=== PATIENT | female | born 1975 | race Caucasian/White ===

== ENCOUNTER 2016-12-13 10:40 | Emergency (ER) | payer SELFPAY ==
[2016-12-13 10:49] VITALS: TEMP 98.2; BMI 25.7
[2016-12-13] MEDS ORDERED: Albuterol/Ipratropium Neb 3 ML NEB NEB ONE (12:01)
[2016-12-13] MEDS ORDERED: METHYLPREDNISOLONE 125 MG/2 ML VIAL IV ONE (12:01)
[2016-12-13] MEDS ORDERED: NS 1,000 ML IV ONE ×2 (12:04)
[2016-12-13] MEDS ORDERED: SODIUM CHLORIDE 0.9% 3 ML FLUSH FLUSH PRN (12:04)
--- NOTE | 2016-12-13 12:05 | EDPRACDOC ---
- General Information Chief Complaint: Chest Pain Stated Complaint: RIB CAGE PAIN Time Seen by Provider: 12/13/16 11:46 Information Source: Patient Mode Of Arrival: Car Home Medications: Home Medications Amoxicillin/Clavulanate Potas. [Augmentin] 875 mg PO BID #20 tab 12/13/16 Loratadine [Claritin] 10 mg PO DAILY 12/13/16 Omeprazole Magnesium [Prilosec Otc] 40 mg PO DAILY 12/13/16 Prednisone [Deltasone] 20 mg PO BID #12 tablet 12/13/16 Allergies/Adverse Reactions: Allergies Allergy/AdvReac Type Severity Reaction Status Date / Time No Known Allergies Allergy Verified 12/13/16 10:49 - History of Present Illness Symptoms Started: LAST NIGHT HPI: PT C/O NASAL CONGESTION COUGH CONGESTION LEFT SIDED CHEST PAIN AND SOB. PT ALSO STATES SHE HAS VOMITED 2-3 TIMES WHILE COUGHING AND C/O CHILLS AND INTERMITTENT SWEATS. Symptoms: Reports: Cough, Nasal Symptoms, Nausea, Vomiting, Other (CONGESTION) Recent Medications: Reports: None Relevant History Of: Reports: None Shortness of Breath: Mild Cough Frequency: Intermittent Cough Description: Reports: Non-productive, Congested Rhinorrhea: Reports: None Ear Symptoms: Reports: None Associated Signs and Symptoms: Reports: Cough, Nasal Symptoms, Other ( CONGESTION LEFT SIDED CHEST PAIN SHARP IN NATURE) ED Past Medical History - History Reviewed Yes Nurses notes reviewed and agree except as marked Travel Outside of [place] in the Last 3 Months?: No - Patient Medical History Cardiac History: Reports: Hypertension (OFF MEDS) GI/ History: Reports: Gastroesophageal Reflux Surgical History: Reports: Cholecystectomy - Social Medical History Smoking Status: Heavy tobacco smoker (5 or more cigarettes/day or daily pipe/ cigar) ETOH: None Substance Abuse: None Lives With: Other Lives In: Home EDM Review of Systems - Review of Systems ROS Negative Except as Marked: Yes All systems reviewed and were negative except as marked Constitutional: Chills (AND SWEATS). negative: Fever, Fatigue, Loss of Appetite , Weakness Eyes: No Symptoms Reported. negative: Redness, Blurred Vision, Double Vision, Discharge, Pain, Light Sensitive, Photophobia Ears: No Symptoms Reported. negative: Pain, Hearing Loss, Drainage, Ear Pulling Throat: No Symptoms Reported. negative: Pain, Swelling Nose: Congestion. negative: Abrasion, Bleeding, Discharge, Deformity, Ecchymosis, Injection, Laceration, Swelling, Tender Mouth: No Symptoms Reported. negative: Pain, Drooling Respiratory: Cough, Shortness of Breath. negative: Barky Cough, Brassy Cough, Hemoptysis, Wheezing Cardiovascular: Chest Pain (LEFT SIDE). negative: Cyanosis, Edema, Orthopnea, Palpitations, PND, Syncope, Skin Mottling Gastrointestinal: No Symptoms Reported. negative: Pain, Constipation, Nausea, Vomiting, Diarrhea, Melena, Formula Intolerance Genitourinary: No Symptoms Reported. negative: Dysuria, Hematuria, Frequency, Discharge, Bleeding, Testicular Pain, Neurological: No Symptoms Reported. negative: Headache, Dizziness, Seizure, Numbness, Weakness, Speech Difficulty, Gait Difficulty Musculoskeletal: Chestwall (LEFT SIDE, PAIN WORSENS WITH TAKING BREATH COUGHING NO RADIATION.). negative: Arm, Ankle, Back, Elbow, Forearm, Femur, Foot, Hand, Hip, Knee, Leg, Neck, Pelvis, Ribs, Shoulder, Wrist Integumentary: No Symptoms Reported. negative: Itching, Rash, Bruising, Wound Allergic/Immunologic: No Symptoms Reported. negative: Hives, Itching Hematologic: No Symptoms Reported. negative: Lymphadenopathy, Easy Bruising, Easy Bleeding Endocrine: No Symptoms Reported. negative: Weight Gain, Weight Loss Psychiatric: No Symptoms Reported. negative: Anxiety, Depression, Hallucinations, Insomnia, Suicidal - Physical Exam Constitutional: No apparent distress, Alert (Awake) Oriented to: Time, Person, Place Last recorded Vital Signs: Last Vital Signs Temp 98.2 F 12/13/16 10:45 Pulse 117 12/13/16 10:45 Resp 20 12/13/16 10:45 BP 170/97 12/13/16 10:45 Pulse Ox 97 12/13/16 10:45 Oxygen Pulse Oxygen Saturation 97 O2 Device Oxygen Flow Rate Fraction of Inspired Oxygen ( FIO2) - HEENT Head: Normal ( normocephalic) Eye Exam: Normal (PERRL, EOMI, Sclera white) Oropharynx: Normal (Pharynx:Moist without exudate,Gums-no swelling) Tympanic Membrane: Normal ENT EAC: Normal TMJ: Normal Nose: Congestion Neck: Normal (FROM, trachea at midline) - Respiratory/Cardiovascular Respiratory: Rhonchi (LEFT SIDE), Wheezes (LEFT SIDE) Cardiovascular: Tachycardia - GI Auscultation: Normal (NABS) Palpation: Normal (Soft,No rebound or guarding, non distended) Tenderness: Non tender Stone's Sign: Negative - Bladder: Normal - Musculoskeletal Back: Normal (Non-Tender) Extremities: Normal (Normal tone, Pulses 2+ No cyanosis or edema, FROM) - Integumentary Skin: Normal, Warm, Dry Lymphatics: Normal (no adenopathy) - Neurologic Memory Impaired: Normal Motor Function: Normal (Normal tone, Pulses 2+ No cyanosis or edema, FROM) Cranial Nerve: Normal (CN II-X11 intact sensation, strength 5/5) Cerebellar: Normal Mood Description: Normal Perception: Normal - Differential Diagnosis Bronchitis, Pneumonia, URI, Viral - Results 12/13/16 11:36 12/13/16 11:36 - Diagnostic Imaging CXR Image interpreted by: Radiologist IMPRESSION: Negative chest. Decision Time to Discharge: 13:21 - Departure Disposition: Home Condition: Stable Final Diagnosis: Bronchopneumonia Instructions: Chest Pain (ED), Community Acquired Pneumonia (ED) Education/Counseling Given To: Patient Education/Counseling Given Regarding: Diagnosis, Treatment, Prognosis, Follow Up Referrals: None,No Provider [Primary Care Provider] - One Week Prescriptions: Amoxicillin/Clavulanate Potas. [Augmentin] 875 mg PO BID #20 tab Prednisone [Deltasone] 20 mg PO BID #12 tablet Additional Instructions: RETURN FOR WORSE OR DIFFERENT SYMPTOMS.
[2016-12-13 12:29] LABS: AUTOMATED BASOPHIL 0.4 % (0-2); AUTOMATED EOSINOPHIL 0.6 % (0-5); AUTOMATED LYMPH 30.6 % (17-44); AUTOMATED MONOCYTE 5.8 % (3-10); AUTOMATED NEUTROPHIL 62.6 % (45-76)
--- NOTE | 2016-12-13 12:47 | DIRPT ---
CLINICAL DATA: Cough, congestion, chest pain and shortness of breath today. Initial encounter. EXAM: CHEST 2 VIEW COMPARISON: Single view of the chest 08/30/2013. PA and lateral chest 08/15/2012. FINDINGS: The lungs are clear. Heart size is normal. No pneumothorax or pleural effusion. No focal bony abnormality. IMPRESSION: Negative chest. Electronically Signed By: Gaurav Barros M.D. On: 12/13/2016 12:44
[2016-12-13 12:58] LABS: BLOOD UREA NITROGEN 13 MG/DL (7-17); CALCIUM 8.9 MG/DL (8.4-10.2); CALCULATED OSMOLALITY 268 MOs/Kg (270-290); CHLORIDE 105 mEq/L (98-107); CPK TOTAL WITH POSSIBLE MB 28 IU/L (30-134); GLUCOSE 85 MG/DL (70-99); SODIUM LEVEL 140 mEq/L (137-146); TOTAL PROTEIN 7.4 G/DL (6.3-8.2)
[2016-12-13 13:08] LABS: LEUKOCYTES/URINE NEG (NEGATIVE); NITRITE/URINE NEG (NEGATIVE); URINE OCCULT BLOOD NEG (NEG/TRACE)
[2016-12-13] MEDS ORDERED: KETOROLAC TROMETH 15 MG/1 ML VIAL IV ONE (13:09)
[2016-12-13 13:10] LABS: PARTIAL THROMB. TIME 28.9 SEC (22-35); PT-INR 1.1
[2016-12-13] MEDS ORDERED: ALBUTEROL 6.7 GM MDI INH ONE (13:23)
[2016-12-13 13:51] VITALS: BP 131/83; PULSE 82
[2016-12-13] MEDS ORDERED: SODIUM CHLORIDE 0.9% 3 ML FLUSH FLUSH SCH (18:00)
== END 2016-12-13 13:45 | disposition home or self-care (01) ==
LOC: ED 10:40
DX: J18.0 Bronchopneumonia, unspecified organism (principal); K21.9 Gastro-esophageal reflux disease without esophagitis; F17.200 Nicotine dependence, unspecified, uncomplicated; Z79.899 Other long term (current) drug therapy; R06.02 Shortness of breath
CPT/HCPCS: 36415; 71020; 80053; 81001; 82550; 83874; 83880; 84484; 85025; 85610; 85730; 93005; 94640; 96361; 96374; 96375; 99284; J1885; J2930; J3490; J7620